=== PATIENT | male | born 1955 | race Caucasian/White ===

== ENCOUNTER 2021-02-25 18:29 | Emergency (ER) | payer OTHER ==
[2021-02-25 18:53] LABS: BASOPHILS % (AUTO) 0.1 %; EOSINOPHILS % (AUTO) 0.4 %; HCT - HEMATOCRIT 44.8 % (42.0-52.0); HGB - HEMOGLOBIN 15.8 g/dL (14.0-18.0); LYMPHOCYTES # (AUTO) 1.3 10^3/uL (1.5-3.5); LYMPHOCYTES % (AUTO) 15.6 %; MEAN CORPUSCULAR HEMOGLOBIN 30.2 pg (27.0-31.0); MEAN CORPUSCULAR HGB CONC 35.3 g/dL (32.0-36.0); MEAN CORPUSCULAR VOLUME 85.7 fL (80.0-94.0); MEAN PLATELET VOLUME 10.1 fL (7.4-11.4); MONOCYTES # (AUTO) 0.9 10^3/uL (0.0-1.0); MONOCYTES % (AUTO) 11.1 %; NEUTROPHILS # (AUTO) 6.1 10^3/uL (1.5-6.6); NEUTROPHILS % (AUTO) 72.4 %; PLT - PLATELET COUNT 197 10^3/uL (130-450); RED BLOOD COUNT 5.23 10^6/uL (4.70-6.10); RED CELL DISTRIBUTION WIDTH 11.2 % (12.0-15.0); WHITE BLOOD COUNT 8.5 x10^3/uL (4.8-10.8)
[2021-02-25 19:06] LABS: ALBUMIN 3.5 g/dL (3.2-5.5); ALBUMIN/GLOBULIN RATIO 0.8 (1.0-2.2); CALCIUM 8.4 mg/dL (8.5-10.3); POTASSIUM 3.9 mmol/L (3.5-5.0); TOTAL PROTEIN 7.9 g/dL (6.7-8.2)
[2021-02-25] MEDS ORDERED: ALBUTEROL 1 PUFF INH STA (19:06)
[2021-02-25] MEDS ORDERED: SODIUM CHLORIDE 0.9% 1,000 ML IV STA (19:06)
--- NOTE | 2021-02-25 19:06 | ED Physician Documentation ---
History of Present Illness - Stated complaint Stated Complaint: C+ FEVER,SOA,COUGH - Additonal information Additional information: 65-year-old male who denies any pertinent past medical history or current medications presents to the emergency department for evaluation of dyspnea in the setting of recent COVID-19 infection. He received the [employer] vaccine on January 25. He began to not feel well approximately February 09 and tested positive for COVID-19 at [facility] in [place] on February 11. Since then he has been quarantining at home but feels that the cough is not improving and he reports being severely short of air which he has never experienced before. He has been having intermittent fevers with a T-max as high as 102. Some nausea but no vomiting. Small bouts of diarrhea. He does endorse loss of taste and smell. He is not a smoker or drinker. He has not received medical treatment for the COVID-19 up until today. He does not feel that his symptoms are any better or any worse he is simply tired of dealing with it. Review of Systems Constitutional: reports: Fever, Chills, Myalgias Eyes: reports: Reviewed and negative Ears: reports: Reviewed and negative Nose: reports: Congestion (Loss of taste and smell) Throat: denies: Sore throat Cardiac: denies: Chest pain / pressure, Palpitations, Pedal edema, Calf pain Respiratory: reports: Dyspnea, Cough, Hemoptysis. denies: Wheezing GI: reports: Nausea, Diarrhea. denies: Abdominal Pain, Vomiting : reports: Other (Reports reduced urinary output). denies: Dysuria, Frequency, Hesitancy Skin: reports: Rash Musculoskeletal: denies: Neck pain, Back pain Neurologic: reports: Reviewed and negative PD PAST MEDICAL HISTORY - Present Medications Home Medications: Ambulatory Orders Medication Instructions Recorded Confirmed Albuterol Sulf [Ventolin Hfa 1 - 2 puffs INH Q4HR PRN #1 inhaler 02/25/21 Inhaler] dexAMETHasone [Decadron] 4 mg PO DAILY #4 tablet 02/25/21 - Allergies Allergies/Adverse Reactions: Allergies Allergy/AdvReac Type Severity Reaction Status Date / Time Penicillins Allergy Unknown Verified 02/25/21 19:03 PD ED PE EXPANDED - General General: Alert, No acute distress, Well developed/nourished - Neck Neck: Supple w/out meningeal sx. No: Adenopathy - Cardiac Cardiac: Regular Rate, Radial strong equal, Pedal strong equal, Cap refill < 2 sec. No: Murmur Present - Respiratory Respiratory: Wheezing (Faint left-sided wheezes on auscultation but otherwise clear. No tachypnea or distress noted. Room air sats of 94%.). No: Distress, Labored - Abdomen Abdomen: Normal Bowel sounds. No: Tender to palpation - Back Back: Normal exam. No: Vertebral tenderness, Soft tissue tenderness - Extremities Extremities: Normal. No: Deformity, Tenderness - Neuro Neuro: Alert and Oriented X 3, CNII-XII intact - GCS Eye Opening: Spontaneous Motor: Obeys Commands Verbal: Oriented Total: 15 Results - Vitals Vitals: Vital Signs - 24 hr 02/25/21 02/25/21 02/25/21 19:03 19:20 20:12 Temperature 38.3 C H Heart Rate 96 95 102 H Respiratory 14 18 25 H Rate Blood Pressure 137/90 H 140/98 H O2 Saturation 96 95 Oxygen O2 Source Room air - Labs Labs: Laboratory Tests 02/25/21 02/25/21 02/25/21 18:45 18:45 19:12 WBC 8.5 RBC 5.23 Hgb 15.8 Hct 44.8 MCV 85.7 MCH 30.2 MCHC 35.3 RDW 11.2 L Plt Count 197 MPV 10.1 Neut # (Auto) 6.1 Lymph # (Auto) 1.3 L [place] # (Auto) 0.9 Eos # (Auto) 0.0 Baso # (Auto) 0.0 Absolute Nucleated RBC 0.00 Nucleated RBC % 0.0 Sodium 131 L Potassium 3.9 Chloride 94 L Carbon Dioxide 26 Anion Gap 11.0 BUN 10 Creatinine 1.0 Estimated GFR (MDRD) 75 L Glucose 202 H Lactic Acid 2.0 Calcium 8.4 L Total Bilirubin 1.0 AST 35 ALT 40 Alkaline Phosphatase 49 Total Protein 7.9 Albumin 3.5 Globulin 4.4 H Albumin/Globulin Ratio 0.8 L Lipase 35 - Rads (name of study) cxr Radiology: Final report received (Mild generalized interstitial prominence. No focal consolidation seen suspect prior smoking history.) PD MEDICAL DECISION MAKING - ED course Complexity details: reviewed results, re-evaluated patient, d/w patient ED course: This is a 65-year-old male who denies any pertinent past medical history presents to the ER with persistent cough and shortness of air in the setting of recent COVID-19 infection. He was vaccinated with a [employer] vaccine on January 25 but tested positive for COVID-19 on February 11. He has persisted at home with intermittent fevers mostly a dry cough and shortness of air. Here in the emergency department he was afebrile. He is noted to have room air saturations of 95 to 97%. Initially on cardiopulmonary auscultation there were faint scattered wheezes. I did ask respiratory therapy to give him an albuterol inhaler at the bedside that did markedly improve the wheeze. Patient did report that his shortness of breath was improved. Chest x-ray shows mild generalized prominence but no focal consolidation. At this time the patient is stable for discharge home. We do note a moderate hyponatremia but he was repleted with 1 L of IV fluids. Patient was given 4 mg of Decadron here in the ER and will be discharged with a 4-day course. Given the persistence of the cough I will also prescribe azithromycin. Patient is to return to the ER if he feels that his symptoms are not improving, he has worsening fevers vomiting the development of chest pain, or uncontrolled abdominal pain and diarrhea. Departure - Departure Disposition: 01 Home, Self Care Clinical Impression: COVID-19 virus infection, Shortness of breath, Wheeze, Hyperglycemia, unspecified Condition: Stable Record reviewed to determine appropriate education?: Yes Prescriptions: Albuterol Sulf [Ventolin Hfa Inhaler] 1 - 2 puffs INH Q4HR PRN #1 inhaler PRN Reason: Shortness Of Air/Wheezing dexAMETHasone [Decadron] 4 mg PO DAILY #4 tablet Comments: Rashawn estrada are seen in the ER today for persistent cough and shortness of air in the setting of a recent diagnosis of COVID-19. Your chest x-ray does not show an obvious pneumonia. Your vital signs were stable and your oxygen levels were normal. It can take some people quite a long time to recover from the Covid symptoms. I think that prescribing you an antibiotic to help treat bronchitis will be helpful. I am also prescribing Decadron a steroid that can help with the shortness of air and wheeze that you had when you presented. If at any point you feel that your symptoms are worsening, you develop fevers higher than 102, you are severely short of air or develop chest pain please return to the emergency department for a second evaluation. Your blood sugar today did show an elevated blood sugar level of about 202. I would like you to discuss this finding with your primary care doctor to determine if it is necessary to test you for diabetes.
--- NOTE | 2021-02-25 19:53 | XRAY Report ---
PROCEDURE: Chest 1 View X-Ray INDICATIONS: chest pain TECHNIQUE: One view of the chest was acquired. COMPARISON: FINDINGS: Surgical changes and devices: None. Lungs and pleura: No pleural effusions or pneumothorax. Lungs are abnormal with a mild interstitial prominence, presumably related to prior smoking history by appearance.. Mediastinum: Mediastinal contours appear normal. Heart size is normal. Bones and chest wall: No suspicious bony lesions. Overlying soft tissues appear unremarkable. IMPRESSION: Mild generalized interstitial prominence, no focal consolidation seen. Suspect prior smoking history. Reviewed by: Ramo Hines MD on 02/25/2021 7:52 PM PDT Approved by: Ramo Hines MD on 02/25/2021 7:52 PM PDT Station ID: [id number]
[2021-02-25] MEDS ORDERED: IBUPROFEN 600 MG TABLET PO STA (20:01)
[2021-02-25] MEDS ORDERED: DEXAMETHASONE 10 MG/ML VIAL PO STA (20:56)
[2021-02-25] MEDS ORDERED: CHERRY SYRUP 10 ML UDC PO ONE (21:09)
[2021-02-25 21:23] VITALS: BP 135/74
== END 2021-02-25 21:23 | disposition home or self-care (01) ==
LOC: ED 18:29
DX: U07.1 COVID-19 (principal); R73.9 Hyperglycemia, unspecified; E87.1 Hypo-osmolality and hyponatremia
CPT/HCPCS: 36415; 71045; 80053; 83605; 83690; 85025; 87040; 94640; 94664; 99284; A9270

== ENCOUNTER 2022-12-07 19:42 | Emergency (ER) | payer MEDICARE ==
[2022-12-07 20:02] VITALS: BP 150/81
--- NOTE | 2022-12-07 20:49 | ED Physician Documentation ---
History of Present Illness - Stated complaint Stated Complaint: R HAND INJ - Chief complaint Chief Complaint: Ext Problem - Additonal information Additional information: 67-year-old male presents emergency department for evaluation of a right hand injury that occurred about 1 week ago. He was playing with his Rottweiler and they both reached for a dog toy at the same time. His Rottweiler's head accidentally hit the top of his hand very forcefully. Since then he has had pain at the MCP joint of the middle finger and limited flexion extension mostly due to pain. There is mild swelling. No erythema. He is right-hand dominant. No open sores or lesions. No history of previous injury. Review of Systems Musculoskeletal: reports: Extremity pain PD PAST MEDICAL HISTORY - Past Surgical History Past Surgical History: No - Present Medications Home Medications: Ambulatory Orders Medication Instructions Recorded Confirmed Albuterol Sulf [Ventolin Hfa 1 - 2 puffs INH Q4HR PRN #1 inhaler 02/25/21 Inhaler] dexAMETHasone [Decadron] 4 mg PO DAILY #4 tablet 02/25/21 Azithromycin [Zithromax] 0 mg PO DAILY #6 tablet 02/26/21 - Allergies Allergies/Adverse Reactions: Allergies Allergy/AdvReac Type Severity Reaction Status Date / Time Penicillins Allergy Unknown Verified 02/25/21 19:03 - Social History Does the pt smoke?: No Smoking Status: Never smoker Does the pt drink ETOH?: No Does the pt have substance abuse?: No - Immunizations Immunizations are current?: Yes PD ED PE EXPANDED - Extremities Extremities: Right hand (Focal tenderness and mild swelling at MCP. no ecchymosis. though painful, able to flex and extend at MCP 3rd finger) Results - Vitals Vitals: Vital Signs - 24 hr 12/07/22 20:00 Temperature 36.5 C Heart Rate 77 Respiratory 16 Rate Blood Pressure 150/81 H O2 Saturation 98 Oxygen O2 Source Room air - Rads (name of study) right hand xr Relevant Findings:: EMP independent interpretation of test (No acute fracture or dislocation.) PD Medical Decision Making - ED course Complexity details: reviewed results, re-evaluated patient, d/w patient, d/w family ED course: 67-year-old male presents emergency department for evaluation of 1 week acute pain on the dorsum of the right hand over the middle finger MCP joint. His hand was forcefully hit by his Rottweiler's head while they were playing. Over the last week he has had persistent pain in this joint. Especially painful with movement. He does have some mild swelling but no ecchymosis. He does have preserved tendon function on exam. I did obtain an x-ray here in the emergency department and per my interpretation I find no acute fracture or dislocation. However given the exquisite tenderness I offered the patient a splint. I discussed with him and his that he would benefit from referral to orthopedist or a hand physician for further evaluation. He declined splinting today but ensured me that he would follow closely with his primary care doctor in order to obtain the appropriate referral. I recommend he continue Tylenol, ice and Motrin. The usual emergent return precautions for worsening symptoms were discussed Departure - Departure Disposition: 01 Home, Self Care Clinical Impression: Hand pain, right Condition: Stable Record reviewed to determine appropriate education?: Yes Comments: Rashawn estrada are seen today in the emergency department because for 1 week you have had pain over the MCP joint of your middle finger. This occurred after your dog's head struck your hand forcefully. The x-ray, per my interpretation does not show an obvious fracture. However given how tender you are I am concerned that there could be an occult or difficult to see fracture in this joint space. I did offer you splinting today from the emergency department which you declined. It is imperative however that you follow closely with your primary care provider. You should have obtain referral to an orthopedist or hand specialist for further evaluation.
--- NOTE | 2022-12-07 22:47 | XRAY Report ---
PROCEDURE: Hand 3 View RT INDICATIONS: Pain and swelling at middle MCP joint after trauma TECHNIQUE: 3 views of the right handacquired. COMPARISON: None. FINDINGS: Bones: No fractures or dislocations. No suspicious bony lesions. Soft tissues: No suspicious soft tissue calcifications or masses. IMPRESSION: 1. No fracture or dislocation. Reviewed by: Luiz Dey MD on 12/07/2022 10:45 PM PDT Approved by: Luiz Dey MD on 12/07/2022 10:45 PM PDT Station ID: [id number]
== END 2022-12-07 21:36 | disposition home or self-care (01) ==
LOC: ED 19:42
DX: M79.641 Pain in right hand (principal)
CPT/HCPCS: 99283

== ENCOUNTER 2023-10-03 15:25 | Outpatient (CLI) | payer MEDICARE ==
[2023-10-03 17:57] LABS: BASOPHILS # (AUTO) 0.1 10^3/uL (0.0-0.1); BASOPHILS % (AUTO) 0.8 %; EOSINOPHILS # (AUTO) 0.2 10^3/uL (0.0-0.7); EOSINOPHILS % (AUTO) 2.1 %; HCT - HEMATOCRIT 50.6 % (42.0-52.0); HGB - HEMOGLOBIN 17.1 g/dL (14.0-18.0); LYMPHOCYTES # (AUTO) 2.6 10^3/uL (1.5-3.5); LYMPHOCYTES % (AUTO) 28.9 %; MEAN CORPUSCULAR HEMOGLOBIN 29.4 pg (27.0-31.0); MEAN CORPUSCULAR HGB CONC 33.8 g/dL (32.0-36.0); MEAN CORPUSCULAR VOLUME 87.1 fL (80.0-94.0); MEAN PLATELET VOLUME 11.2 fL (7.4-11.4); MONOCYTES # (AUTO) 0.6 10^3/uL (0.0-1.0); NEUTROPHILS # (AUTO) 5.4 10^3/uL (1.5-6.6); PLT - PLATELET COUNT 213 10^3/uL (130-450); RED BLOOD COUNT 5.81 10^6/uL (4.70-6.10); RED CELL DISTRIBUTION WIDTH 12.1 % (12.0-15.0)
[2023-10-03 18:34] LABS: THYROID STIMULATING HORMONE 1.69 uIU/mL (0.34-5.60)
[2023-10-03 19:04] LABS: ALBUMIN 4.2 g/dL (3.2-5.5); ALBUMIN/GLOBULIN RATIO 1.3 (1.0-2.2); ALKALINE PHOSPHATASE 69 IU/L (42-121); ALT ALANINE AMINOTRANSFERASE 30 IU/L (10-60); AST ASPARTATE AMINOTRANSFERASE 18 IU/L (10-42); BILIRUBIN,TOTAL 0.8 mg/dL (0.2-1.0); BUN - BLOOD UREA NITROGEN 16 mg/dL (6-20); CALCIUM 9.3 mg/dL (8.5-10.3); CARBON DIOXIDE - CO2 26 mmol/L (21-32); CHLORIDE 101 mmol/L (101-111); CHOLESTEROL 239 mg/dL; CREATININE 0.8 mg/dL (0.6-1.3); GFR - MDRD 96 (>89); GLUCOSE 274 mg/dL (74-104); HDL CHOLESTEROL 60 mg/dL; LDL CHOLESTEROL,CALCULATED 148 mg/dL; LDL/HDL RATIO 2.5 (<3.6); POTASSIUM 4.1 mmol/L (3.5-4.5); SODIUM 134 mmol/L (135-145); TOTAL PROTEIN 7.4 g/dL (6.4-8.9); TRIGLYCERIDES 156 mg/dL (48-352); VLDL CHOLESTEROL 31 mg/dL
[2023-10-04 11:14] LABS: ESTIMATED AVERAGE GLUCOSE 292 mg/dL (70-100); HEMOGLOBIN A1c% 11.8 % (4.27-6.07)
== END 2023-10-03 15:26 | disposition home or self-care (01) ==
LOC: LAB.N 15:25
PROVIDERS: ATTEND Family Medicine
DX: Z12.5 Encounter for screening for malignant neoplasm of prostate (principal); R03.0 Elevated blood-pressure reading, without diagnosis of hypertension; I34.0 Nonrheumatic mitral (valve) insufficiency; G47.30 Sleep apnea, unspecified; I35.8 Other nonrheumatic aortic valve disorders
CPT/HCPCS: 36415; 80053; 80061; 84443; 85025; G0103; 83036; 83721; 84153